=== PATIENT | male | born 1965 | race Two or more races ===

== ENCOUNTER 2020-04-12 14:16 | Outpatient (CLI) | payer BC | END 2020-04-12 23:59 | disposition home or self-care (01) | LOC: MSC 14:16 | PROVIDERS: ATTEND Internal Medicine | DX: Z00.00 Encounter for general adult medical examination without abnormal findings (principal); N52.9 Male erectile dysfunction, unspecified; I10 Essential (primary) hypertension; Z72.0 Tobacco use; Z86.59 Personal history of other mental and behavioral disorders; F10.99 Alcohol use, unspecified with unspecified alcohol-induced disorder; Z81.8 Family history of other mental and behavioral disorders; Z80.1 Family history of malignant neoplasm of trachea, bronchus and lung; Z82.49 Family history of ischemic heart disease and other diseases of the circulatory system ==